=== PATIENT | female | born 1980 | race Caucasian/White ===

== ENCOUNTER 2016-12-13 06:50 | Emergency (ER) | payer BC ==
[~2016-12-13] VITALS: Ht 152.4 cm; Wt 50.0 kg
[2016-12-13 06:51] VITALS: Ht 152.4 cm; Wt 50.0 kg
[2016-12-13] MEDS ORDERED: SOD CHLORIDE 0.9% 1,000 ML IV STA (07:33)
[2016-12-13] MEDS ORDERED: ONDANSETRON 4 MG INJ IV STA (07:33)
[2016-12-13] MEDS ORDERED: morphine 2 MG INJ IV STA (07:33)
[2016-12-13 08:48] LABS: BASOPHILS % 0.6 % (0.0-2.0); EOSINOPHILS # 0.1 10^3/ul (0.0-0.5); EOSINOPHILS % 1.3 % (0.0-7.0); HEMATOCRIT 36.2 % (37.0-47.0); HEMOGLOBIN 12.1 g/dl (12.0-16.0); LYMPHOCYTES # 1.7 10^3/ul (0.8-2.9); LYMPHOCYTES % 28.8 % (15.0-51.0); MEAN CORPUSCULAR HEMOGLOBIN 28.4 pg (29.0-33.0); MEAN CORPUSCULAR HGB CONC 33.5 g/dl (32.0-37.0); MEAN CORPUSCULAR VOLUME 84.7 fl (82.0-101.0); MEAN PLATELET VOLUME 9.4 fl (7.4-10.4); MONOCYTE # 0.5 10^3/ul (0.3-0.9); MONOCYTES % 7.5 % (0.0-11.0); NEUTROPHIL # 3.7 10^3/ul (1.6-7.5); NEUTROPHILS % 61.8 % (39.0-77.0); PLATELET COUNT 255 10^3/UL (140-440); RED BLOOD COUNT 4.27 10^6/ul (4.20-5.40); RED CELL DISTRIBUTION WIDTH 13.6 % (11.5-14.5); UNCORRECTED WBC 6.1 10^3/ul (4.8-10.8); WHITE BLOOD COUNT 6.1 10^3/ul (4.8-10.8)
[2016-12-13 08:59] LABS: ALBUMIN 4.2 g/dl (3.3-4.9); POTASSIUM 3.4 mmol/L (3.5-5.1)
[2016-12-13 09:01] LABS: BILIRUBIN,INDIRECT 0.1 mg/dl (0-1.1); BILIRUBIN,TOTAL 0.1 mg/dl (0.2-1.3); CREATININE 0.58 mg/dl (0.44-1.00)
[2016-12-13 09:02] LABS: ALBUMIN/GLOBULIN RATIO 1.16; CALCIUM 9.2 mg/dl (8.4-10.2); TOTAL PROTEIN 7.8 g/dl (6.1-8.1)
[2016-12-13 09:26] LABS: CONDITION 1
[2016-12-13] MEDS ORDERED: UDLOM GTB (10:02)
[2016-12-13] MEDS ORDERED: ONDA4TAB11 PO (10:02)
[2016-12-13] MEDS ORDERED: NAPR-688 PO (10:02)
--- NOTE | 2016-12-13 10:07 | ERD ---
ER Documentation Chief Complaint Date/Time DATE: 12/13/16 TIME: 10:04 Chief Complaint ap with nausea and diarrhea x 3 days HPI This 35-year-old female presents emergency room with nausea and diarrhea for 3 days she's had a couple episodes of vomiting for nonbloody is nonbilious. The diarrhea is watery. She also has crampy upper abdominal pain associated with vomiting and diarrhea. She denies if she might have gotten some food poisoning or from IV stomach virus she says. She denies any fever and chills. ROS All systems reviewed and are negative except as per history of present illness. Medications Home Meds Active Scripts Diphenoxylate Hcl-Atropine* (Lomotil*) 5 Ml Soln, 5 ML GTB Q6H Y for DIARRHEA, # 10 ML Prov:ANGLE BARROSO DO 12/13/16 Naproxen* (Naproxen*) 500 Mg Tablet, 500 MG PO BID Y for PAIN, #14 TAB Prov:CHIOANGLE DO 12/13/16 Ondansetron (Zofran Odt) 4 Mg Tab.rapdis, 4 MG PO Q6, #10 Prov:ANGLE BARROSO DO 12/13/16 Allergies Allergies: Coded Allergies: No Known Allergy (Unverified , 06/12/12) PMhx/Soc Medical and Surgical Hx: pt denies Surgical Hx History of Surgery: No Anesthesia Reaction: No Hx Neurological Disorder: No Hx Respiratory Disorders: No Hx Cardiac Disorders: No Hx Psychiatric Problems: No Hx Miscellaneous Medical Probl: Yes (FIBROMYALGIA) Hx Alcohol Use: No Hx Substance Use: No Hx Tobacco Use: No Smoking Status: Never smoker Physical Exam Vitals Vital Signs Date Time Temp Pulse Resp B/P Pulse Ox O2 Delivery O2 Flow Rate FiO2 12/13/16 06:51 98.1 110 20 122/76 99 Physical Exam Const: [] No distress Head: Atraumatic Eyes: Normal Conjunctiva ENT: Normal External Ears, Nose and Mouth. Neck: Full range of motion..~ No meningismus. Resp: Clear to auscultation bilaterally Cardio: Regular while tachycardia, no murmurs Abd: Soft, mild upper abdominal pain without guarding or rebound, non distended. Normal bowel sounds Skin: No petechiae or rashes Back: No midline or flank tenderness Ext: No cyanosis, or edema Neur: Awake and alert Psych: Normal Mood and Affect Result Diagram: 12/13/16 0815 12/13/16 0815 Results 24 hrs Laboratory Tests Test 12/13/16 08:15 Alanine Aminotransferase (ALT/SGPT) 25IU/L Albumin 4.2g/dl Albumin/Globulin Ratio 1.16 Alkaline Phosphatase 61IU/L Anion Gap 16 Aspartate Amino Transf (AST/SGOT) 21IU/L Basophils # 0.010^3/ul Basophils % 0.6% Blood Morphology Comment Blood Urea Nitrogen 7mg/dl Calcium Level 9.2mg/dl Carbon Dioxide Level 27mmol/L Chloride Level 106mmol/L Creatinine 0.58mg/dl Direct Bilirubin 0.00mg/dl Eosinophils # 0.110^3/ul Eosinophils % 1.3% Globulin 3.60g/dl Glucose Level 85mg/dl Hematocrit 36.2% Hemoglobin 12.1g/dl Indirect Bilirubin 0.1mg/dl Lipase 62U/L Lymphocytes # 1.710^3/ul Lymphocytes % 28.8% Mean Corpuscular Hemoglobin 28.4pg Mean Corpuscular Hemoglobin Concent 33.5g/dl Mean Corpuscular Volume 84.7fl Mean Platelet Volume 9.4fl Monocytes # 0.510^3/ul Monocytes % 7.5% Neutrophils # 3.710^3/ul Neutrophils % 61.8% Nucleated Red Blood Cells # 0.010^3/ul Nucleated Red Blood Cells % 0.0/100WBC Platelet Count 75044^3/UL Potassium Level 3.4mmol/L Red Blood Count 4.2710^6/ul Red Cell Distribution Width 13.6% Serum HCG, Qualitative NEGATIVE Sodium Level 146mmol/L Total Bilirubin 0.1mg/dl Total Protein 7.8g/dl White Blood Count 6.110^3/ul Current Medications Medications (Trade) Dose Ordered Sig/Bari Route PRN Reason Start Time Stop Time Status Last Admin Dose Admin Sodium Chloride (NS) 1,000 ml @ 1,000 mls/hr Q1H STAT IV 12/13/16 07:33 12/13/16 08:32 DC 12/13/16 08:14 Morphine Sulfate (morphine) 2 mg ONCE STAT IV 12/13/16 07:33 12/13/16 07:35 DC 12/13/16 08:15 Ondansetron HCl (Zofran Inj) 4 mg ONCE STAT IV 12/13/16 07:33 12/13/16 07:35 DC 12/13/16 08:14 Procedures/MDM 35-year-old female with what sounds like viral gastroenteritis. I Heriberto doubt any serious bacterial infections or surgical emergencies. She was given Zofran and hydrated with normal saline. As well as 2 mg of morphine which resolved her symptoms. She is feeling much better has no elevated white count to suggest any serious disease. She is feeling better minute discharging her with Zofran, naproxen, Lomotil for symptomatic relief. Mildly increased sodium associated with mild dehydration that she likely has after these symptoms for 3 days. I believe she'll have full recovery number given primary care follow-up next 2-3 days as well as return precautions to the ER. Departure Diagnosis: Primary Impression: Diarrhea Additional Impressions: Gastroenteritis Vomiting Dehydration Condition: Stable Patient Instructions: Self-Care for Vomiting and Diarrhea, Gastroenteritis, Viral (6Y-Adult) Additional Instructions: Call your primary care doctor TOMORROW for an appointment during the next 2-3 days.See the doctor sooner or return here if your condition worsens before your appointment time. ANGLE BARROSO DO Dec 13, 2016 10:07
[2016-12-13 10:22] LABS: ADD UMIC YES; URINE BILIRUBIN (Dip) NEGATIVE (NEGATIVE); URINE BLOOD (Dip) TRACE (NEGATIVE); URINE COLOR YELLOW (YELLOW); URINE GLUCOSE (Dip) NEGATIVE (NEGATIVE); URINE KETONES (Dip) NEGATIVE (NEGATIVE); URINE LEUKOCYTE ESTERASE (Dip) NEGATIVE (NEGATIVE); URINE NITRITE (Dip) NEGATIVE (NEGATIVE); URINE TOTAL PROTEIN (Dip) NEGATIVE (NEGATIVE); URINE UROBILINOGEN (Dip) 0.2 E.U./dL (0.1-1.0)
[2016-12-13 10:30] VITALS: BP 120/78; PULSE 88; RESP 16; TEMP 98.4
[2016-12-13 10:37] LABS: SQUAMOUS EPITHELIAL CELL,UR FEW; URINE RBCS 0-2 /HPF ([, 0])
== END 2016-12-13 10:30 | disposition home or self-care (01) ==
LOC: FTE 06:50
DX: K52.9 Noninfective gastroenteritis and colitis, unspecified (principal); E86.0 Dehydration; R11.10 Vomiting, unspecified
CPT/HCPCS: 36415; 80053; 81001; 83690; 84703; 85025; 96374; 96375; 99284; J2270; J2405; J7030; 81003

== ENCOUNTER → 2019-04-08 | Outpatient (CLI) | payer BC ==
[~2019-04-08] MED LIST: ACET325T33 PO; CIPR500T4 PO; DIPH25CA6 PO; HYDR-3980 PO; IBUP800T48 PO; NAPR-688 PO; ONDA4TAB11 PO; ONDA4TAB14 PO; PANT40TA3 PO; UDLOM GTB
== END | disposition home or self-care (01) ==
LOC: U/S 09:02
PROVIDERS: ATTEND Internal Medicine
DX: R10.2 Pelvic and perineal pain (principal)
CPT/HCPCS: 76856

== ENCOUNTER 2019-04-12 14:32 | Emergency (ER) | payer BC ==
[~2019-04-12] VITALS: Wt 53.2 kg
[~2019-04-12 14:32] MED LIST changes: -ACET325T33 PO; -CIPR500T4 PO; -DIPH25CA6 PO; -HYDR-3980 PO; -IBUP800T48 PO; -ONDA4TAB14 PO; -PANT40TA3 PO
[2019-04-12 14:35] VITALS: BP 147/78; PULSE 107; RESP 18
[2019-04-12] MEDS ORDERED: KETOROLAC 15 MG INJ IV STA (15:09)
[2019-04-12] MEDS ORDERED: HYDROmorphONE 0.5 MG/0.5 ML SYG IV STA ×3 (16:00→19:52)
[2019-04-12] MEDS ORDERED: FAMOTIDINE 20 MG INJ IV ONE (16:00)
[2019-04-12] MEDS ORDERED: ONDANSETRON 4 MG INJ IV STA ×3 (16:00→22:11)
[2019-04-12] MEDS ORDERED: DIPH25CA6 PO (20:51)
[2019-04-12] MEDS ORDERED: ONDA4TAB14 PO (22:59)
[2019-04-12] MEDS ORDERED: IBUP800T48 PO (22:59)
[2019-04-12] MEDS ORDERED: HYDR-3980 PO (22:59)
--- NOTE | 2019-04-12 23:04 | ERD ---
ER Documentation Chief Complaint Chief Complaint PELVIC PAIN X 1 WEEK HPI 38-year-old female who was sent to the emergency room for pelvic pain for at least 1 week. She had an abnormal ultrasound result reported today with large pelvic mass. The patient describes diffuse cramping abdominal discomfort to the suprapubic region. She denies any sudden onset of pain. No nausea vomiting or constipation. Pain is 8 out of 10. ROS All systems reviewed and are negative except as per history of present illness. Medications Home Meds Active Scripts Ondansetron (Ondansetron Odt) 4 Mg Tab.rapdis, 4 MG PO Q6H PRN for NAUSEA AND/OR VOMITING, #20 TAB Prov:ROBBIN AIKEN MD 04/12/19 Ibuprofen* (Motrin*) 800 Mg Tab, 800 MG PO Q6H PRN for PAIN AND OR ELEVATED TEMP, #30 TAB Prov:ROBBIN AIKEN MD 04/12/19 Hydrocodone/Acetaminophen ([place] 10-325 Tablet) 1 Each Tablet, 1 TAB PO Q6H PRN for PAIN, #10 TAB Prov:ROBBIN AIKEN MD 04/12/19 Diphenoxylate Hcl-Atropine* (Lomotil*) 5 Ml Soln, 5 ML GTB Q6H PRN for DIARRHEA, #10 ML Prov:ANGLE BARROSO DO 12/13/16 Naproxen* (Naproxen*) 500 Mg Tablet, 500 MG PO BID PRN for PAIN, #14 TAB Prov:ANGLE BARROSO DO 12/13/16 Ondansetron (Zofran Odt) 4 Mg Tab.rapdis, 4 MG PO Q6, #10 Prov:ANGLE BARROSO DO 12/13/16 Discontinued Scripts Diphenhydramine Hcl (Benadryl) 25 Mg Cap, 25 MG PO QHS for insomnia for 15 Days, #15 CAP Prov:NATANAEL HICKS MD 04/12/19 Allergies Allergies: Coded Allergies: No Known Allergy (Unverified , 06/12/12) PMhx/Soc History of Surgery: No Anesthesia Reaction: No Hx Neurological Disorder: No Hx Respiratory Disorders: No Hx Cardiac Disorders: No Hx Psychiatric Problems: No Hx Miscellaneous Medical Probl: Yes (FIBROMYALGIA) Hx Alcohol Use: No Hx Substance Use: No Hx Tobacco Use: No FmHx Family History: No diabetes Physical Exam Vitals Vital Signs Date Temp Pulse Resp B/P (MAP) Pulse Ox O2 O2 Flow FiO2 Time Delivery Rate 04/12/19 98.8 107 18 147/78 99 14:35 (101) Physical Exam General: Well developed, well nourished, no acute distress Head: Normocephalic, atraumatic. Eyes: EOM intact ENT: Moist mucous membranes Neck: Full ROM Respiratory: No respiratory distress Cardiovascular: Well perfused distally Abdominal: Nondistended, soft nontender no rebound or guarding : Deferred MSK: No edema, no unilateral swelling, 5/5 strength Neurologic: Alert and oriented, moving all extremities, normal speech, steady gait Skin: No rash Psych: Normal mood Result Diagram: 04/12/19 1518 04/12/19 1518 Results 24 hrs Laboratory Tests Test 04/12/19 15:18 04/12/19 15:22 White Blood Count 7.8 10^3/ul Red Blood Count 4.59 10^6/ul Hemoglobin 12.9 g/dl Hematocrit 39.1 % Mean Corpuscular Volume 85.2 fl Mean Corpuscular Hemoglobin 28.1 pg Mean Corpuscular Hemoglobin Concent 33.0 g/dl Red Cell Distribution Width 13.1 % Platelet Count 258 10^3/UL Mean Platelet Volume 11.0 fl Immature Granulocytes % 0.400 % Neutrophils % 49.1 % Lymphocytes % 41.4 % Monocytes % 5.6 % Eosinophils % 2.6 % Basophils % 0.9 % Nucleated Red Blood Cells % 0.0 /100WBC Immature Granulocytes # 0.030 10^3/ul Neutrophils # 3.9 10^3/ul Lymphocytes # 3.2 10^3/ul Monocytes # 0.4 10^3/ul Eosinophils # 0.2 10^3/ul Basophils # 0.1 10^3/ul Nucleated Red Blood Cells # 0.0 10^3/ul Urine Color STRAW Urine Clarity CLEAR Urine pH 7.0 Urine Specific [place] 1.006 Urine Ketones NEGATIVE mg/dL Urine Nitrite NEGATIVE mg/dL Urine Bilirubin NEGATIVE mg/dL Urine Urobilinogen NEGATIVE mg/dL Urine Leukocyte Esterase TRACE Kanwal/ul Urine Microscopic RBC 1 /HPF Urine Microscopic WBC 1 /HPF Urine Bacteria FEW /HPF Urine Hemoglobin 1+ mg/dL Urine Glucose NEGATIVE mg/dL Urine Total Protein NEGATIVE mg/dl Sodium Level 144 mmol/L Potassium Level 3.7 mmol/L Chloride Level 106 mmol/L Carbon Dioxide Level 28 mmol/L Anion Gap 10 Blood Urea Nitrogen 6 mg/dl Creatinine 0.54 mg/dl Est Glomerular Filtrat Rate mL/min > 60 mL/min Glucose Level 115 mg/dl Calcium Level 9.3 mg/dl Total Bilirubin 0.3 mg/dl Direct Bilirubin 0.00 mg/dl Indirect Bilirubin 0.3 mg/dl Aspartate Amino Transf (AST/SGOT) 21 IU/L Alanine Aminotransferase (ALT/SGPT) 22 IU/L Alkaline Phosphatase 69 IU/L Total Protein 8.2 g/dl Albumin 4.4 g/dl Globulin 3.80 g/dl Albumin/Globulin Ratio 1.15 POC Beta HCG, Qualitative NEGATIVE Current Medications Medications Dose Sig/Bari Start Time Status Last (Trade) Ordered Route PRN Stop Time Admin Dose Reason Admin Ketorolac 15 mg ONCE STAT 04/12/19 DC 04/12/19 Tromethamine IV 15:09 15:28 (Toradol) 04/12/19 15:11 0.5 mg ONCE STAT 04/12/19 DC 04/12/19 Hydromorphone IV 16:00 16:09 HCl 04/12/19 16:02 (Dilaudid) Famotidine 20 mg ONCE ONCE 04/12/19 DC 04/12/19 (Pepcid Iv) IV 16:00 16:09 04/12/19 16:02 Ondansetron 4 mg ONCE STAT 04/12/19 DC 04/12/19 HCl (Zofran IV 16:00 16:09 Inj) 04/12/19 16:02 0.5 mg ONCE STAT 04/12/19 DC 04/12/19 Hydromorphone IV 18:05 18:10 HCl 04/12/19 18:06 (Dilaudid) 0.5 mg ONCE STAT 04/12/19 DC 04/12/19 Hydromorphone IV 19:52 20:47 HCl 04/12/19 19:53 (Dilaudid) Ondansetron 4 mg ONCE STAT 04/12/19 DC 04/12/19 HCl (Zofran IV 20:49 20:52 Inj) 04/12/19 20:50 Ondansetron 4 mg ONCE STAT 04/12/19 DC 04/12/19 HCl (Zofran IV 22:11 22:44 Inj) 04/12/19 22:12 Procedures/MDM EKG, MONITORS, & DIAGNOSTIC IMAGING: MRI abdomen and pelvis. IMPRESSION: 1. Findings most likely consistent with a pedunculated enhancing fibroid arising from left anterolateral fundal myometrium. Consider 6 months follow-up with MRI to document stability. 2. Ring- like intrauterine device is present. 3. Ovaries are unremarkable. RPTAT: [facility] LAB INTERPRETATION: I reviewed the laboratory testing and it shows [no evidence of acute process] MEDICAL DECISION MAKING: Patient has abnormal ultrasound and presents with pelvic pain. The patient was initially seen by ER to provider and given pain medication with improved symptomatology. Discussed the case with EPIC MANAGER who recommended MRI imaging of the pelvis. Low concern for ovarian cyst or torsion. Concern for possible malignancy or mass. ER COURSE: * Patient's pain much improved. The patient's laboratory testing is reassuring. MRI imaging of the pelvis shows uterine fibroid. No evidence of ovarian process. No evidence of ovarian torsion. * I spoke to the patient's EPIC MANAGER, Dr. May who recommends outpatient follow- up. * The patient is safe for discharge with close primary care EPIC MANAGER follow-up CONSULTATION: EPIC MANAGER as documented above DISPOSITION PLAN: The patient does not have an identifiable emergent medical condition that w arrants inpatient hospitalization at this time. The patient is deemed safe for discharge with outpatient follow-up. We discussed follow up with the patient's primary care doctor within 24 to 48 hours as needed. We also discussed return to the emergency room for worsening symptoms or worsening condition. Outpatient referral: [facility] Discharge Medications: [place], Zofran, Motrin NARCOTIC MEDICATION: The patient has been prescribed a narcotic medication during this encounter. The patient has been warned about the use of narcotics. The patient should not drive or operate heavy machinery while taking this medication. The patient was also warned about the addictive properties of narcotic medications. [Narcan prescription was NOT provided given the following criteria: 1. No more than 5 tablets of [place] 10 mg or 10 tablets of [place] 5 mg were prescribed. 2. Concomitant opiate and benzodiazepine prescriptions were not provided. 3. There is no obvious evidence of prior history of opiate abuse or overdose.] Departure Diagnosis: Primary Impression: Uterine fibroid Uterine leiomyoma location: unspecified location Qualified Codes: D25.9 - Leiomyoma of uterus, unspecified Additional Impression: Acute pain in female pelvis Condition: Stable Patient Instructions: Uterine Fibroids Referrals: BECKIE HUMPHREY MD Additional Instructions: Call your primary care doctor TOMORROW for an appointment during the next 1 WEEK.Tell the executive secretary social welfare that you were referred from this facility.See the doctor sooner or return here if your condition worsens before your appointment time. ROBBIN AIKEN MD April 12, 2019 23:04
== END 2019-04-12 23:41 | disposition home or self-care (01) ==
LOC: FTE 14:32 → E/R 23:41
DX: D25.9 Leiomyoma of uterus, unspecified (principal)
CPT/HCPCS: 36415; 72197; 80053; 81001; 81025; 85025; 96374; 96375; 96376; 99285; J1170; J1885; J2405

== ENCOUNTER 2019-04-14 03:47 | Emergency (ER) | payer BC ==
[~2019-04-14] VITALS: Wt 53.7 kg
[~2019-04-14 03:47] MED LIST changes: +HYDR-3980 PO; +IBUP800T48 PO; +ONDA4TAB14 PO
[2019-04-14] MEDS ORDERED: SOD CHLORIDE 0.9% 1,000 ML IV STA (04:37)
[2019-04-14] MEDS ORDERED: ONDANSETRON 4 MG INJ IV STA (04:37)
[2019-04-14] MEDS ORDERED: morphine 4 MG/ML VIAL IV STA (04:37)
[2019-04-14] MEDS ORDERED: HYDROmorphONE 0.5 MG/0.5 ML SYG IV STA (05:21)
[2019-04-14] MEDS ORDERED: FAMOTIDINE 20 MG INJ IV ONE (05:30)
[2019-04-14] MEDS ORDERED: KETOROLAC 30 MG INJ IV STA (06:56)
[2019-04-14] MEDS ORDERED: KETOROLAC 60 MG INJ IM STA (06:56)
[2019-04-14] MEDS ORDERED: CEFTRIAXONE 1 GM/50 ML (PMX) 50 ML IVPB ONE (07:00)
[2019-04-14] MEDS ORDERED: CIPR500T4 PO (07:25)
[2019-04-14] MEDS ORDERED: ACET325T33 PO (07:25)
[2019-04-14] MEDS ORDERED: DICYCLOMINE 10 MG CAP PO ONE (07:30)
[2019-04-14 07:32] VITALS: BP 108/66; PULSE 85; RESP 18
--- NOTE | 2019-04-14 08:26 | ERD ---
ER Documentation Chief Complaint Chief Complaint AP X'S 1 WEEK, PAIN INCREASING HPI 38-year-old female presenting with abdominal pain for the last week. Patient states that she was seen here 2 days ago and had an MRI done of her pelvis. She was told she had fibroids. She states her pain is continued. She has had no fevers. No vomiting. Has taken medication with no alleviation of symptoms. Patient states that she has an appointment in 2 hours with [facility]. She does not have any vaginal bleeding. No dysuria. No chest pain or shortness of breath. ROS All systems reviewed and are negative except as per history of present illness. Medications Home Meds Active Scripts Acetaminophen* (Tylenol*) 325 Mg Tablet, 2 TAB PO Q6 PRN for PAIN AND OR ELEVATED TEMP, #20 TAB Prov:LIBAN KIMBALL PA-C 04/14/19 Ciprofloxacin Hcl* (Ciprofloxacin Hcl*) 500 Mg Tablet, 500 MG PO BID for 7 Days, TAB Prov:LIBAN KIMBALL PA-C 04/14/19 Ondansetron (Ondansetron Odt) 4 Mg Tab.rapdis, 4 MG PO Q6H PRN for NAUSEA AND/OR VOMITING, #20 TAB Prov:ROBBIN AIKEN MD 04/12/19 Ibuprofen* (Motrin*) 800 Mg Tab, 800 MG PO Q6H PRN for PAIN AND OR ELEVATED TEMP, #30 TAB Prov:ROBBIN AIKEN MD 04/12/19 Hydrocodone/Acetaminophen ([place] 10-325 Tablet) 1 Each Tablet, 1 TAB PO Q6H PRN for PAIN, #10 TAB Prov:ROBBIN AIKEN MD 04/12/19 Diphenoxylate Hcl-Atropine* (Lomotil*) 5 Ml Soln, 5 ML GTB Q6H PRN for DIARRHEA, #10 ML Prov:ANGLE BARROSO DO 12/13/16 Naproxen* (Naproxen*) 500 Mg Tablet, 500 MG PO BID PRN for PAIN, #14 TAB Prov:ANGLE BARROSO DO 12/13/16 Ondansetron (Zofran Odt) 4 Mg Tab.rapdis, 4 MG PO Q6, #10 Prov:ANGLE BARROSO DO 12/13/16 Discontinued Scripts Diphenhydramine Hcl (Benadryl) 25 Mg Cap, 25 MG PO QHS for insomnia for 15 Days, #15 CAP Prov:NATANAEL HICKS MD 04/12/19 Allergies Allergies: Coded Allergies: No Known Allergy (Unverified , 06/12/12) PMhx/Soc History of Surgery: No Anesthesia Reaction: No Hx Neurological Disorder: No Hx Respiratory Disorders: No Hx Cardiac Disorders: No Hx Psychiatric Problems: No Hx Miscellaneous Medical Probl: Yes (FIBROMYALGIA) Hx Alcohol Use: Yes (Socially) Hx Substance Use: No Hx Tobacco Use: No Smoking Status: Never smoker FmHx Family History: No diabetes, No coronary disease, No other Physical Exam Vitals Vital Signs Date Temp Pulse Resp B/P (MAP) Pulse Ox O2 O2 Flow FiO2 Time Delivery Rate 04/14/19 98.1 85 18 108/66 100 Room Air 07:32 (80) 04/14/19 98.6 96 20 128/74 100 03:49 (92) Physical Exam GENERAL: The patient is well-appearing, well-nourished, in no acute distress HEENT: Atraumatic. Conjunctivae are pink. Pupils equal, round, and reactive to light. There is no scleral icterus. Tympanic membranes clear bilaterally. Oropharynx clear. CHEST: Clear to auscultation bilaterally. There are no rales, wheezes or rhon chi. HEART: Regular rate and rhythm. No murmurs, clicks, rubs or gallops. ABDOMEN:Soft, nontender and nondistended. Good bowel sounds. No rebound or guarding. No gross peritonitis. No gross organomegaly or masses. Result Diagram: 04/14/19 0445 04/14/19 0445 Results 24 hrs Laboratory Tests Test 04/14/19 04:45 04/14/19 05:29 White Blood Count 12.3 10^3/ul Red Blood Count 4.47 10^6/ul Hemoglobin 12.6 g/dl Hematocrit 37.9 % Mean Corpuscular Volume 84.8 fl Mean Corpuscular Hemoglobin 28.2 pg Mean Corpuscular Hemoglobin Concent 33.2 g/dl Red Cell Distribution Width 12.8 % Platelet Count 262 10^3/UL Mean Platelet Volume 10.9 fl Immature Granulocytes % 0.400 % Neutrophils % 72.2 % Lymphocytes % 21.7 % Monocytes % 4.9 % Eosinophils % 0.2 % Basophils % 0.6 % Nucleated Red Blood Cells % 0.0 /100WBC Immature Granulocytes # 0.050 10^3/ul Neutrophils # 8.9 10^3/ul Lymphocytes # 2.7 10^3/ul Monocytes # 0.6 10^3/ul Eosinophils # 0.0 10^3/ul Basophils # 0.1 10^3/ul Nucleated Red Blood Cells # 0.0 10^3/ul Sodium Level 143 mmol/L Potassium Level 3.5 mmol/L Chloride Level 109 mmol/L Carbon Dioxide Level 24 mmol/L Anion Gap 10 Blood Urea Nitrogen 11 mg/dl Creatinine 0.61 mg/dl Est Glomerular Filtrat Rate mL/min > 60 mL/min Glucose Level 121 mg/dl Calcium Level 9.5 mg/dl Total Bilirubin 0.4 mg/dl Direct Bilirubin 0.00 mg/dl Indirect Bilirubin 0.4 mg/dl Aspartate Amino Transf (AST/SGOT) 23 IU/L Alanine Aminotransferase (ALT/SGPT) 22 IU/L Alkaline Phosphatase 79 IU/L Total Protein 7.9 g/dl Albumin 4.3 g/dl Globulin 3.60 g/dl Albumin/Globulin Ratio 1.19 Lipase 77 U/L Urine Color YELLOW Urine Clarity SLIGHTLY CLOUDY Urine pH 8.0 Urine Specific [place] 1.013 Urine Ketones NEGATIVE mg/dL Urine Nitrite POSITIVE mg/dL Urine Bilirubin NEGATIVE mg/dL Urine Urobilinogen NEGATIVE mg/dL Urine Leukocyte Esterase TRACE Kanwal/ul Urine Microscopic RBC 0 /HPF Urine Microscopic WBC 10 /HPF Urine Squamous Epithelial Cells FEW /HPF Urine Bacteria FEW /HPF Urine Mucus FEW /HPF Urine Hemoglobin NEGATIVE mg/dL Urine Glucose NEGATIVE mg/dL Urine Total Protein NEGATIVE mg/dl Urine Test NEGATIVE Current Medications Medications Dose Sig/Bari Start Time Status Last (Trade) Ordered Route PRN Stop Time Admin Dose Reason Admin Sodium 1,000 ml @ Q1H STAT 04/14/19 DC 04/14/19 Chloride 1,000 mls/hr IV 04:37 04:55 04/14/19 05:36 Morphine 4 mg ONCE STAT 04/14/19 DC 04/14/19 Sulfate IV 04:37 04:55 (morphine) 04/14/19 04:40 Ondansetron 4 mg ONCE STAT 04/14/19 DC 04/14/19 HCl (Zofran IV 04:37 04:55 Inj) 04/14/19 04:40 Famotidine 20 mg ONCE ONCE 04/14/19 DC 04/14/19 (Pepcid Iv) IV 05:30 05:34 04/14/19 05:31 1 mg ONCE STAT 04/14/19 DC 04/14/19 Hydromorphone IV 05:21 05:34 HCl 04/14/19 05:23 (Dilaudid) Ceftriaxone 50 ml @ ONCE ONCE 04/14/19 DC 04/14/19 Sodium 100 mls/hr IVPB 07:00 06:59 04/14/19 07:29 Ketorolac 60 mg ONCE STAT 04/14/19 DC Tromethamine IM 06:56 (Toradol) 04/14/19 06:57 Ketorolac 30 mg ONCE STAT 04/14/19 DC 04/14/19 Tromethamine IV 06:56 06:59 (Toradol) 04/14/19 06:57 Dicyclomine 10 mg ONCE ONCE 04/14/19 DC 04/14/19 HCl PO 07:30 07:13 (Bentyl) 04/14/19 07:31 Procedures/MDM DIAGNOSTIC IMAGING REPORT Patient: DIXIE KWOK : 1980 Age: 38 Sex: F MR #: [id number] DOS: 04/14/19 043 Ordering MD: CRISTA WHITTINGTON PA-C Location: [facility] Room/Bed: PROCEDURE: CT Abdomen and Pelvis without contrast. CLINICAL INDICATION: Abdominal pain TECHNIQUE: CT scan of the abdomen and pelvis without contrast was performed on a multi-detector high-resolution CT scanner. Coronal and sagittal reformatted images obtained from the axial source images. Images were reviewed on a high- resolution PACS workstation. Exam CTDI 5.48 mGy Exam DLP 295.48 mGy-cm DICOM images are available. One or more of the following dose reduction techniques were utilized: 1.) Automated exposure control 2.) Adjustment of the mA +/- kV according to patient's size 3.) Use of iterative reconstruction technique. COMPARISON: None FINDINGS: CT abdomen: LOWER THORAX: Lung bases are clear. LIVER AND GALLBLADDER: No abnormal findings. SPLEEN: Normal. PANCREAS: Normal. ADRENAL GLANDS: Normal. KIDNEYS: Kidneys are symmetric in size and morphology. No hydronephrosis or visible renal calculus. Bilateral ureters are unremarkable. VASCULATURE: Abdominal aorta is normal in caliber. LYMPH NODES: No significant retroperitoneal or mesenteric lymphadenopathy. BOWEL AND MESENTERY: Stomach and small bowel are unremarkable. A normal appendix is identified. Liquid stool is noted within the otherwise unremarkable large bowel. No inflammatory changes in the mesentery. CT pelvis: The urinary bladder is unremarkable. Uterus and adnexal structures appear normal for age. There is no free fluid in the pelvis. No significant pelvic lymphadenopathy. Bones: Regional bones and superficial soft tissues are grossly unremarkable for age. IMPRESSION: 1. Liquid stool within the distal large bowel. No additional acute findings. 2. Normal appendix. ER Course: Dilaudid, Morphine, Toradol and Bentyl given in ED MDM: 88-year-old female presenting with abdominal pain. I reviewed this case with Dr. Lópze prior to discharge and there is no clear indication for admission at this time. On reevaluation patient is resting comfortably and does not have severe pain on palpation. I have low suspicion for emergent domicile emergency. I have low suspicion for pelvic abnormality. Patient is discharged with strict ER precautions and recommended to follow-up with Dr. May as previously planned today. Patient is told if symptoms change or worsen to return immediately to the ER. All questions answered at discharge Departure Diagnosis: Primary Impression: UTI (urinary tract infection) Additional Impression: Abdominal pain Condition: Stable Patient Instructions: Abdominal Pain, Understanding Urinary Tract Infections (UTIs) Additional Instructions: FOLLOW UP WITH YOUR PRIMARY CARE PHYSICIAN TOMORROW.Return to this facility if you are not improving as expected. LIBAN KIMBALL PA-C April 14, 2019 08:26
[2019-04-15] MEDS ORDERED: PANT40TA3 PO (10:06)
== END 2019-04-14 07:55 | disposition home or self-care (01) ==
LOC: FTE 03:47
DX: N39.0 Urinary tract infection, site not specified (principal); R10.2 Pelvic and perineal pain
CPT/HCPCS: 36415; 74176; 80053; 81001; 83690; 84703; 85025; 96361; 96365; 96375; 99285; J0696; J1170; J1885; J2270; J2405; J7030

== ENCOUNTER 2019-04-15 09:19 | Inpatient (IN) | payer BC ==
--- NOTE | 2019-04-14 19:08 | HP ---
Date/Time of Note Date/Time of Note DATE: 04/14/19 TIME: 19:01 Assessment/Plan VTE Prophylaxis SCD contraindicated: low risk/ambulating Pharmacological prophylaxis: NA/contraindicated Pharm contraindication: low risk/ambulating Lines/Catheters IV Catheter Type (from Nrsg): Peripheral IV Central line still needed: No Urinary Cath still in place: No Assessment/Plan Assessment/Plan A: Probable left pedunculated fibroid. Left pelvic pain. Gastritis. P: Minilaparotomy. Myomectomy. HPI/ROS Admit Date/Time Admit Date/Time April 15, 2019 Hx of Present Illness 38 y.o. G0 with a Nuvaring has been having LLQ pain x 1 week and bouts of epigastric pain as well. She went to Dr Coned 04/07 who ordered an US which showed a 5 cm left adnexal mass. She went back to Dr Conde 04/12 and was given a GI cocktail in the office and her sx's resolved and then she was put on Protonix of which she has only taken 2 doses, so far. The pt had gastritis at age 14. 04/12 evening she went to the ER for severe pain and an MRI was done. This showed the left adnexal mass again completely separate from the ovary and it appears to be a pedunculated fibroid. The rest of the uterus and both ovaries appear completely normal. The pt went home and went back to the ER early this AM again for severe pain and had a CT scan of the abdomen and pelvis which was very normal with a normal appendix, gallbladdder and, interestingly, uterus and ovaries without mention of the left adnexal mass. The pt is still having mild pa in but is extremely anxious about what the cause is and is very anxious to do something. She says she had wanted the ER doctor to admit her to the hospital. Scheduled pt for a minilaparotomy with myomectomy as an outpatient. Discussed with her that if the upper abdominal issues continue that everyone will still be focusing on the mass so it will be important to remove so that the focus can shift as well as to, hopefully, take away the lower pain. Pt readily agreed. I also called and spoke to Dr Conde so she is aware of the plan and the events of the last few days. ROS Respiratory: no complaints Cardiovascular: no complaints Gastrointestinal: nausea, vomiting (but not at present) Genitourinary: no complaints Neurologic: no complaints Psychological: no complaints, nl mood/affect PMH/Family/Social Past Medical History H/o gastritis at age 14 and probably now. Coded Allergies: No Known Allergy (Unverified , 06/12/12) Past Surgical History Past Surgical Hx: no surgical history Family History Significant Family History: diabetes (Grandmother) Social History Alcohol Use: none Smoking Status: Never smoker Drug Use: none Exam/Review of Systems Vital Signs Vitals BP 112/80 Exam Constitutional: alert, oriented, well developed Psych: no complaints, nl mood/affect Respiratory: clear to auscultation, normal air movement Cardiovascular: regular rate and rhythm, nl pulses Gastrointestinal: soft, nl liver, spleen, non-tender (except for 1+ tender in the left, lower quadrant) Genitourinary - Female: nl adnexae, nl external genitalia Neurological: LARD BLEACHER II-XII intact, nl mental status, nl speech, nl strength BECKIE HUMPHREY MD April 14, 2019 19:08
[2019-04-15] VITALS (20 sets, daily range): BP systolic 93–142; BP diastolic 49–86; PULSE 82–109; RESP 15–20; Ht 152.4 cm; Wt 53.1 kg
[~2019-04-15] VITALS: Ht 152.4 cm; Wt 53.1 kg
[~2019-04-15 09:19] MED LIST changes: +ACET325T33 PO; +CEFAZOLIN 2 GM/50 ML (PMX) 50 ML IVPB ONE; +CIPR500T4 PO
[2019-04-15] MEDS ORDERED: PANT40TA3 PO (10:06)
[2019-04-15] MEDS: LACTATED RINGER'S 1,000 ML IV SCH ×3 (10:10→23:04)
[2019-04-15] MEDS ORDERED: VASOPRESSIN 20 UNITS INJ ONE (11:04)
[2019-04-15] MEDS ORDERED: SODIUM CL BACTERIOSTATIC 30 ML INJ ONE (11:04)
--- NOTE | 2019-04-15 11:09 | PREAC ---
Date/Time of Note Date/Time of Note DATE: 04/15/19 TIME: 11:07 Anesthesia Eval and Record Evaluation Time Pre-Procedure Interview DATE: 04/15/19 TIME: 11:07 Age 38 Sex female NPO: 8 hrs Preoperative diagnosis Uterine fibroids Planned procedure Minilaparotomy, myomectomy Past Medical History Past Medical History: None Surgery & Anesthesia Issues No known issue Meds Anticoagulation: No Beta Al within 24 hr: No Reason Beta Al not given: Pt. not on B-Al Active Scripts Ciprofloxacin Hcl* (Ciprofloxacin Hcl*) 500 Mg Tablet, 500 MG PO BID for 7 Days, TAB Prov:LIBAN KIMBALL PA-C 04/14/19 Reported Medications Pantoprazole* (Protonix*) 40 Mg Tablet.dr, 40 MG PO DAILY, TAB 04/15/19 Discontinued Scripts Acetaminophen* (Tylenol*) 325 Mg Tablet, 2 TAB PO Q6 PRN for PAIN AND OR ELEVATED TEMP, #20 TAB Prov:LIBAN KIMBALL PA-C 04/14/19 Ondansetron (Ondansetron Odt) 4 Mg Tab.rapdis, 4 MG PO Q6H PRN for NAUSEA AND/OR VOMITING, #20 TAB Prov:ROBBIN AIKEN MD 04/12/19 Ibuprofen* (Motrin*) 800 Mg Tab, 800 MG PO Q6H PRN for PAIN AND OR ELEVATED TEMP, #30 TAB Prov:ROBBIN AIKEN MD 04/12/19 Hydrocodone/Acetaminophen (Arthur 10-325 Tablet) 1 Each Tablet, 1 TAB PO Q6H PRN for PAIN, #10 TAB Prov:ROBBIN AIKEN MD 04/12/19 Diphenoxylate Hcl-Atropine* (Lomotil*) 5 Ml Soln, 5 ML GTB Q6H PRN for DIARRHEA, #10 ML Prov:ANGLE BARROSO DO 12/13/16 Naproxen* (Naproxen*) 500 Mg Tablet, 500 MG PO BID PRN for PAIN, #14 TAB Prov:ANGLE BARROSO DO 12/13/16 Ondansetron (Zofran Odt) 4 Mg Tab.rapdis, 4 MG PO Q6, #10 Prov:ANGLE BARROSO DO 12/13/16 Diphenhydramine Hcl (Benadryl) 25 Mg Cap, 25 MG PO QHS for insomnia for 15 Days, #15 CAP Prov:NATANAEL HICKS MD 04/12/19 Current Medications Lactated Ringer's 1,000 ml @ 125 mls/hr Q8H IV Last administered on 04/15/19at 10:10; Admin Dose 125 MLS/HR; Start 04/14/19 at 18:55 Meds reviewed: Yes Allergies Coded Allergies: No Known Allergy (Unverified , 04/15/19) Allergies Reviewed: Yes Labs/Studies Labs Reviewed: Reviewed by anesthesiologist test: Negative Pre-procedure Exam Last vitals Vital Signs Date Temp Pulse Resp B/P (MAP) Pulse Ox O2 O2 Flow FiO2 Time Delivery Rate 04/15/19 98.6 84 16 112/73 99 Room Air 10:36 (86) Airway: Adequate mouth opening Mallampati: Mallampati I Teeth: Normal Lung: Normal Heart: Normal ASA Physical Status ASA physical status: 1 Emergency: None Planned Anesthetic General/MAC: ETT Planned Pain Management Parenteral pain med Pre-operative Attestations Prior to commencing anesthesia and surgery, the patient was re-evaluated, there was verification of: *The patient's identity *The results of appropriate recent lab work and preoperative vital signs *The above evaluation not changing prior to induction *Anesthetic plan, risk benefits, alternative and complications discussed with patient/family; questions answered; patient/family understands, accepts and wishes to proceed. TARSHA IRELAND MD April 15, 2019 11:09
[2019-04-15] MEDS ORDERED: SUCCINYLCHOLINE CHLORIDE 100 MG/5 ML SYG IV ONE (11:29)
[2019-04-15] MEDS ORDERED: ROCURONIUM 50 MG INJ ONE (11:29)
[2019-04-15] MEDS ORDERED: GLYCOPYRROLATE 0.4 MG INJ ONE ×2 (11:29→11:53)
[2019-04-15] MEDS ORDERED: NEOSTIGMINE 3 MG/3 ML SYRINGE ONE (11:29)
[2019-04-15] MEDS ORDERED: PROPOFOL 20 ML ONE (11:29)
[2019-04-15] MEDS ORDERED: ONDANSETRON 4 MG INJ ONE (11:29)
[2019-04-15] MEDS ORDERED: LIDOCAINE 2% (SDV) 5 ML INJ ONE (11:29)
[2019-04-15] MEDS ORDERED: METOCLOPRAMIDE 10 MG INJ ONE (11:29)
[2019-04-15] MEDS ORDERED: CEFAZOLIN 1 GM INJ ONE (11:29)
[2019-04-15] MEDS ORDERED: MEPERIDINE 100 MG INJ ONE (11:33)
[2019-04-15] MEDS ORDERED: MIDAZOLAM 1 MG/ML 2 ML INJ IV PRN (13:00)
[2019-04-15] MEDS ORDERED: ONDANSETRON 4 MG INJ IV PRN (13:00)
[2019-04-15] MEDS ORDERED: OXYCODONE/ACETAMINOPHEN (5/325) TAB PO PRN ×2 (13:00)
[2019-04-15] MEDS ORDERED: METOCLOPRAMIDE 10 MG INJ IV PRN (13:00)
[2019-04-15] MEDS ORDERED: FENTAnyl 50 MCG/ML VIAL IV PRN ×3 (13:00)
[2019-04-15] MEDS ORDERED: MEPERIDINE 25 MG INJ IV PRN (13:00)
[2019-04-15] MEDS ORDERED: DIPHENHYDRAMINE 50 MG INJ IV PRN (13:00)
[2019-04-15] MEDS ORDERED: HYDROmorphONE 1 MG/5 ML IV SYRINGE IV PRN ×3 (13:00)
--- NOTE | 2019-04-15 14:48 | OPR ---
Date/Time of Note Date/Time of Note DATE: 04/15/19 TIME: 14:23 Operative Report Free Text/Dictation April 15, 2019 Procedure Date: April 15, 2019 Preoperative Diagnosis Left lower quadrant pain. Pedunculated 6 cm fundal uterine fibroid. Postoperative Diagnosis Same. Operation/Procedure Performed Minilaparatomy. Myomectomy. Surgeon see signature line Occupational Therapist Rehab Manager none Anesthesia Type: general Anesthesiologist: TARSHA IRELAND MD Estimated Blood Loss: 10 - 50 ml's Transfusion none Specimen Fibroid. Grafts/Implants none Complications none Pt Condition Post Procedure: stable Disposition: PACU Procedure Description Pt was brought to the OR, placed on the table and was placed under general anesthesia. She was prepped and draped in the usual sterile fashion. A small Pfannensteil incision was made with a knife continuing on to the fascia. The fascia was incised and extended bilaterally with scissors. The superior edge of the fascia was grasped with radha clamps and the fascia was from the rectus muscles using cautery. The rectus muscles were at midline and the peritoneum was entered using fingers. The incision was stretched open with hands. The uterus was palpated and the left pedunculated fibroid identified and elevated to the incision and then grasped with a tenaculum. The uterus was normal and both tubes and ovaries were visualized and normal. There was some omentum adherent to the fibroid. This was clamped and cut and then a free tie was used for hemostasis x 2. The fibroid was on a thick stalk so this was clamped and then cut off. The stalk was suture ligated x 2. A piece of Surgicel was sutured to the stalk and tied in place. the abdomen was irrigated. The peritoneum was closed with 2-0 chromic. The rectus muscles were brought together at midline with the same suture. The underbelly of the fascia was examined and noted to be dry. The fascia was closed with 0 Vicryl suture. The subcutaneous layer was closed with 2-0 chromic. The skin was closed with 4-0 Monocryl in a subcuticular stitch. Steristrips with Mastasol were placed and a pressure dressing was applied overall. The pt tolerated the procedure well and was awakened from anesthesia and transferred to the recovery room in excellent condition. BECKIE HUMPHREY MD April 15, 2019 14:33
[2019-04-15] MEDS: KETOROLAC 30 MG INJ IV PRN (15:46)
--- NOTE | 2019-04-15 15:58 | PAC ---
Date/Time of Note Date/Time of Note DATE: 04/15/19 TIME: 15:57 Post-Anesthesia Notes Post-Anesthesia Note Last documented vital signs Vital Signs Date Temp Pulse Resp B/P (MAP) Pulse Ox O2 O2 Flow FiO2 Time Delivery Rate 04/15/19 98.9 109 18 110/57 100 15:38 (74) 04/15/19 Room Air 10:36 Activity: WNL Respiratory function: WNL Cardiovascular function: WNL Mental status: Baseline Pain reasonably controlled: Yes Hydration appropriate: Yes Nausea/Vomiting absent: Yes TARSHA IRELAND MD April 15, 2019 15:58
[2019-04-15] MEDS: OXYCODONE/ACETAMINOPHEN (5/325) TAB PO PRN ×2 (18:19→21:02)
[2019-04-15] MEDS: HYDROmorphONE 2 MG/ML SYG IV PRN (22:05)
[2019-04-15] MEDS ORDERED: HYDROmorphONE 1 MG/ML SYG IV PRN (22:30)
[2019-04-16 01:48] VITALS: BP 112/59; PULSE 88; RESP 16
[2019-04-16] MEDS: LACTATED RINGER'S 1,000 ML IV SCH ×5 (01:58→22:27)
[2019-04-16] MEDS: HYDROmorphONE 2 MG/ML SYG IV PRN ×3 (02:01→10:18)
[2019-04-16 07:28] VITALS: BP 98/55; PULSE 89; RESP 18
[2019-04-16] MEDS: OXYCODONE/ACETAMINOPHEN (5/325) TAB PO PRN ×2 (08:28→14:08)
[2019-04-16 14:26] VITALS: BP 96/50; PULSE 89; RESP 16
[2019-04-16] MEDS: KETOROLAC 30 MG INJ IV PRN (18:12)
[2019-04-16] MEDS: ONDANSETRON 4 MG INJ IV PRN (19:04)
[2019-04-16 19:55] VITALS: BP 104/59; PULSE 89; RESP 18
[2019-04-16] MEDS ORDERED: LORAZEPAM 2 MG INJ IV ONE (20:00)
[2019-04-16] MEDS ORDERED: CEFTRIAXONE 2 GM/50 ML (PMX) 50 ML IVPB ONE (20:00)
--- NOTE | 2019-04-16 20:10 | QN ---
Documentation Comment POD #1 Pt has had a rough day today. She was unable to void in the AM after her catheter was removed so an in and out catheterization was done around noon. She was only able to void small amounts in 100 or 200 cc increments and she was very uncomfortable so we just put the catheter back in and got 700 cc out.It will be left in until tomorrow and will give Urecholine starting tonight to prepare. Pt's pain management has been less than optimal today. She was on Toradol and Dilaudid with the plan to switch to oral meds today but was unable to do so as she still needed IV level of pain management. I changed her from Dilaudid to Morphine to see if the control was better but she has only had one dose of that so far so unable to say if it is an improvement. She was eating but then had a bout of nausea with vomiting that has resolved. We gave her a dose of Zofran. She is unsure if it was related to the Morphine or the soup she ate that her boyfriend brought her. Her IV also infitrated so she was very flustered and anxious until that was changed. Will give her a dose of Ativan 1 mg to help her relax. Needless to say she was unable to go home today, as was the plan, so we had to change her admission status to inpatient from outpatient. Will check on her alex few hours and see if she will need something to help her sleep. Will order a CBC for the AM. T=98.6 BP 96/50. BECKIE HUMPHREY MD April 16, 2019 20:08
[2019-04-16] MEDS: FAMOTIDINE 20 MG INJ IV SCH (20:42)
[2019-04-16] MEDS: morphine 4 MG/ML VIAL IV PRN (20:43)
[2019-04-17] MEDS: BETHANECHOL 25 MG TAB PO SCH ×4 (01:06→20:48)
[2019-04-17 02:28] VITALS: BP 98/66; PULSE 87; RESP 18
[2019-04-17] MEDS: morphine 4 MG/ML VIAL IV PRN ×2 (03:13→07:13)
[2019-04-17] MEDS ORDERED: PANTOPRAZOLE 40 MG INJ IV SCH (06:00)
[2019-04-17] MEDS: LACTATED RINGER'S 1,000 ML IV SCH (07:06)
[2019-04-17 08:17] VITALS: BP 107/66; PULSE 98; RESP 17
[2019-04-17] MEDS: OXYCODONE/ACETAMINOPHEN (5/325) TAB PO PRN ×5 (08:18→22:02)
[2019-04-17] MEDS: FAMOTIDINE 20 MG INJ IV SCH ×2 (08:18→20:49)
[2019-04-17] MEDS ORDERED: IBUPROFEN 800 MG TAB PO PRN (12:00)
[2019-04-17 15:29] VITALS: BP 103/77; PULSE 79; RESP 17
[2019-04-17] MEDS: ONDANSETRON 4 MG INJ IV PRN (16:59)
[2019-04-17 19:44] VITALS: BP 105/67; PULSE 76; RESP 18
--- NOTE | 2019-04-17 20:59 | QN ---
Documentation Comment POD #2 Pt was in better spirits this AM. Apparently the Ativan worked well for her. She was still very nervous about taking out the pelaez catheter so I left it up to her to decide when she wanted to try and she decided on 11 AM after 2 doses of urecholine. Also moved her from IV pain meds to p.o. Percocet and Motrin 800. The oral meds were addressing her pain. She was able to void but in the late afternoon was still feeling a lot of pressure to go even though the bladder scan only showed about 100 cc residual. The IV was discontinued and by 8 pm she was voiding more easily but did not feel up to going home due to the concern about voiding but feels she will be better prepared in the AM if she voids indepe ndently throughout the night. Pt was encouraged to get up and walk and to take a shower. T=98.3 BP 105/67 Dressing is clean, dry and intact. Ext NT, no edema. WBC 9.0 Hgb 9.8 Plts 175K. P: Continue care and plan d/c in the AM. BECKIE HUMPHREY MD April 17, 2019 20:59
[2019-04-18] MEDS: OXYCODONE/ACETAMINOPHEN (5/325) TAB PO PRN ×3 (01:38→13:25)
[2019-04-18 01:43] VITALS: BP 96/52; PULSE 66; RESP 16
[2019-04-18 07:54] VITALS: BP 110/53; PULSE 82; RESP 17
[2019-04-18] MEDS: FAMOTIDINE 20 MG INJ IV SCH (08:51)
[2019-04-18] MEDS: BETHANECHOL 25 MG TAB PO SCH ×2 (08:51→13:20)
--- NOTE | 2019-04-18 14:32 | PD.PPDC ---
[employer] Discharge Instruction Condition [id number] Patient Condition: [id number] Good Diet [id number] Diet: [id number] Resume Regular Diet Activity/Restrictions [id number] Activity: [id number] Bedrest May be up to bathroom May be up for meals May Shower [id number] Restrictions: [id number] No Exercising No Lifting No Driving Minimize Walking Minimize Stair-climbing No Sexual Activity Wound/Drain Care Instructions [id number] Wound/Drain Care [id number] Remove Steri Strips in 2 Instructions: weeks Keep clean and dry Follow-up Follow-up with Physician: 2, Week/Weeks Return to clinic for [id number] [facility] Instructions: Uhjzy9a Fever greater than 101 Chills Worsening abdominal pain Excessive Vaginal Bleeding [id number] Surgical Instructions: [id number] Incisional Drainage Incisional Redness BECKIE HUMPHREY MD April 18, 2019 14:32
[2019-04-18] MEDS ORDERED: IBUP800T48 PO (14:33)
[2019-04-18] MEDS ORDERED: OXYC-438 PO (14:33)
[2019-04-18] MEDS ORDERED: FAMOTIDINE 20 MG TAB PO SCH (21:00)
== END 2019-04-18 15:20 | disposition home or self-care (01) | DRG 743 ==
LOC: SDS 09:19 → EEVIPCON 09:19 → 2NE 14:51 → OBSVTOIN 14:51 → SDS 14:51 → 2NE 15:15
PROVIDERS: ADMIT Obstetrics & Gynecology; ATTEND Obstetrics & Gynecology
PROC: 0UB90ZZ Excision of Uterus, Open Approach (ICD-10-PCS; principal; 2019-04-15 11:30)
DX: D25.9 Leiomyoma of uterus, unspecified (principal); K29.70 Gastritis, unspecified, without bleeding; R10.2 Pelvic and perineal pain; R39.198 Other difficulties with micturition; R11.2 Nausea with vomiting, unspecified
CPT/HCPCS: 85025; 87086; 88305; A4310; G0378; J0690; J0696; J1170; J1885; J2060; J2175; J2270; J2405; J2710; J2765; J3010; J7120